=== PATIENT | male | born 1985 | race Two or more races ===

== ENCOUNTER 2023-09-19 14:54 | Outpatient (OUT) | payer OTHER, SELFPAY ==
[2023-09-21 08:10] LABS: HBsAg Screen Negative (Negative); HCV Antibody Non Reactive (Non Reactive); Hep B Core Ab, IgM Negative (Negative); Hep B Core Ab, Tot Negative (Negative); Hepatitis B Surf Ab Quant <3.1 mIU/mL (Immunity>9.9)
[2023-09-21 11:11] LABS: HSV 1 IgG, Type Spec <0.91 index (0.00-0.90); HSV 2 IgG, Type Spec <0.91 index (0.00-0.90)
[2023-09-21 12:08] LABS: HIV Ab/p24 Ag Screen Non Reactive (Non Reactive)
[2023-09-21 13:08] LABS: Rapid Plasma Reagin, Quant Non Reactive titer (NonRea<1:1)
[2023-09-21 21:08] LABS: Neisseria gonorrhoeae, NAA Negative (Negative)
== END 2023-09-19 14:55 | disposition home or self-care (01) ==
LOC: LAB 15:01
PROVIDERS: PCP Family Medicine; Visit Provider Family Medicine
DX: Z20.2 Contact with and (suspected) exposure to infections with a predominantly sexual mode of transmission (principal)
CPT/HCPCS: 36415; 86317; 86592; 86695; 86696; 86704; 86803; 87340; 87389; 87491; 87591